=== PATIENT | female | born 1965 | race Caucasian/White ===

== ENCOUNTER → 2016-06-15 | Outpatient (CLI) | payer BC, OTHER ==
[~2016-06-15] MED LIST: AZAT50TA10 PO; CALCIUM PO; CHOL200024 PO; MILK200C2 PO; MULT-6 PO; OMEG1CAP6 PO; OMEP-110 PO; SULF500T36 PO; URSO300C27 PO
== END | disposition home or self-care (01) ==
LOC: STAR 09:18
PROVIDERS: ATTEND Internal Medicine
DX: Z02.9 Encounter for administrative examinations, unspecified (principal)

== ENCOUNTER → 2016-12-01 | Outpatient (CLI) | payer BC, OTHER ==
[~2016-12-01] MED LIST changes: -AZAT50TA10 PO; +AZAT50TA20 PO
== END | disposition home or self-care (01) ==
LOC: STAR 15:49
PROVIDERS: ATTEND Internal Medicine
DX: Z02.9 Encounter for administrative examinations, unspecified (principal)

== ENCOUNTER 2016-12-07 05:34 | Day surgery (SDC) | payer BC, OTHER ==
[~2016-12-07] VITALS: Ht 175.3 cm; Wt 70.8 kg
[2016-12-07] MEDS ORDERED: LACTATED RINGERS 1,000 ML IV SCH (06:06)
[2016-12-07 06:09] VITALS: BP 121/86
[2016-12-07 06:29] LABS: HCG UR OBC PASS
[2016-12-07] MEDS ORDERED: MIDAZOLAM 1 MG/ML, 2ML ONE (07:20)
[2016-12-07] MEDS ORDERED: FENTANYL PF 100 MCG/2ML ONE (07:20)
[2016-12-07] MEDS ORDERED: ROCURONIUM 10 MG/ML ONE (07:32)
[2016-12-07] MEDS ORDERED: PROPOFOL 10 MG/ML, 20ML ONE (07:32)
[2016-12-07] MEDS ORDERED: ONDANSETRON 2MG/ML, 2ML ONE (07:32)
[2016-12-07] MEDS ORDERED: DEXAMETHASONE 4 MG/ML, 1ML ONE (07:32)
[2016-12-07] MEDS ORDERED: SUCCINYLCHOLINE 20 MG/ML, 10ML ONE (07:32)
[2016-12-07] MEDS ORDERED: HYDROmorphone 1 MG/ML, 1ML IV PRN (08:30)
[2016-12-07] MEDS ORDERED: OXYcodone 5 MG/5 ML ORAL.SOL UDC PO PRN (08:30)
[2016-12-07] MEDS ORDERED: ACETAMINOPHEN 325 MG TABLET PO PRN (08:30)
[2016-12-07] MEDS ORDERED: FENTANYL PF 100 MCG/2ML IV PRN (08:30)
[2016-12-07] MEDS ORDERED: PROMETHAZINE 25 MG/ML, 1ML IV PRN (08:30)
[2016-12-07] MEDS ORDERED: OMNIPAQUE 350 MG/ML, 50 ML BOTTLE ONE (08:42)
== END 2016-12-07 10:10 ==
LOC: OUT 05:34
PROVIDERS: ATTEND Internal Medicine
DX: K83.0 Cholangitis (principal); K50.00 Crohn's disease of small intestine without complications; K21.9 Gastro-esophageal reflux disease without esophagitis; Z88.8 Allergy status to other drugs, medicaments and biological substances
CPT/HCPCS: 43261; 43262; 74328; 81025; 88305; C1769; J0330; J1100; J2250; J2405; J2704; J3010; J7120; Q9967

== ENCOUNTER → 2017-05-31 | Outpatient (CLI) | payer BC, OTHER | LOC: STAR 11:05 | PROVIDERS: ATTEND Internal Medicine | DX: Z02.9 Encounter for administrative examinations, unspecified (principal) ==